=== PATIENT | male | born 1970 | race Caucasian/White ===

== ENCOUNTER 2025-06-02 08:57 | Emergency (ER) | payer OTHER ==
[~2025-06-02] VITALS: Ht 175.3 cm; Wt 95.0 kg
[2025-06-02 09:00] VITALS: O2SAT 95
[2025-06-02] MEDS ORDERED: LISI2.5T47 MT (09:07)
[2025-06-02] MEDS: HYDROCODONE/ACETAMINOPHEN 5/325MG TABLET PO ONE (10:43)
[2025-06-02] MEDS: IBUPROFEN 400MG TABLET PO ONE (10:43)
[2025-06-02] MEDS: ONDANSETRON 4MG ODT PO ONE (10:43)
[2025-06-02] MEDS ORDERED: METH-653 MT (10:51)
[2025-06-02] MEDS ORDERED: LIDO-53 TP (10:51)
[2025-06-02] MEDS ORDERED: TOPUD PO (10:51)
[2025-06-02] MEDS ORDERED: IBUP-2028 MT (10:51)
[2025-06-02 11:09] VITALS: BP 145/83; PULSE 85; RESP 16; TEMP 36.6; O2SAT 95
== END 2025-06-02 11:10 | disposition home or self-care (01) ==
LOC: ER 08:57
DX: S49.92XA Unspecified injury of left shoulder and upper arm, initial encounter (principal); I10 Essential (primary) hypertension; M75.32 Calcific tendinitis of left shoulder; Z79.899 Other long term (current) drug therapy; W19.XXXA Unspecified fall, initial encounter; Y93.89 Activity, other specified; Y92.89 Other specified places as the place of occurrence of the external cause; Y99.8 Other external cause status
CPT/HCPCS: 99284; 73200; 73030; 73100; Q0162